=== PATIENT | male | born 1935 | race American Indian/Alaskan Native ===

== ENCOUNTER 2019-08-21 09:28 | Outpatient (CLI) | payer MEDICARE ==
--- NOTE | 2019-08-21 11:13 | Magnetic Resonance Report ---
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 TECHNIQUE: Multisequence, multiplanar images were obtained. COMPARISON: None available. FINDINGS: CEREBRAL and CEREBELLAR HEMISPHERES: Moderate diffuse volume loss and moderate chronic ischemic fraga es in the white matter are noted. 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 No large chronic infarct. No evidence of mass or mass effect. No midline sh ift. No acute hemorrhage. No diffusion restriction to suggest acute infarct. No extra-axial fluid collection. VENTRICLES: Normal in size and configuration for age. VISUALIZED ORBITS: No significant abnormality. VISUALIZED PARANASAL SINUSES: No significant abnormality. ADDITIONAL FINDINGS: None. IMPRESSION: No acute intracranial process or mass lesion. Moderate volume loss and nonspecific chronic white matter changes. 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 Signer Name: Adam Arroyo Jr, MD Signed: 08/21/2019 11:08 AM Workstation Name: [id number]
== END 2019-08-21 09:29 | disposition home or self-care (01) ==
LOC: MRI 09:28
PROVIDERS: ATTEND Psychiatry & Neurology Neurology
DX: G30.1 Alzheimer's disease with late onset (principal)
CPT/HCPCS: 70551